=== PATIENT | female | born 1955 | race African-American/Black ===

== ENCOUNTER 2023-10-29 10:52 | Emergency (ER) | payer BC ==
[~2023-10-29] VITALS: Ht 154.9 cm; Wt 77.0 kg
[2023-10-29 11:13] VITALS: O2SAT 100
[2023-10-29 11:36] LABS: HEMATOCRIT. 43.4 % (36.0-48.0); MEAN CORPUSCULAR HEMOGLOBIN 27.2 pg (28.0-32.0); MEAN CORPUSCULAR HGB CONC 32.3 g/dL (31.0-37.0); MEAN CORPUSCULAR VOLUME 84.2 fL (81.0-99.0); MEAN PLATELET VOLUME 6.5 fl (7.4-10.4); PLATELET 393 x1000/uL (130-400); RED BLOOD CELL COUNT 5.15 mill/uL (4.2-5.4)
[2023-10-29 11:39] LABS: DIFFERENTIAL COMMENT 1
[2023-10-29 11:54] LABS: CHLORIDE 110 mEq/L (98-107); POTASSIUM 3.6 mEq/L (3.5-5.1); SODIUM 139 mEq/L (136-145)
[2023-10-29 11:56] LABS: CARBON DIOXIDE 20 mEq/L (21-32)
[2023-10-29 11:57] LABS: CALCIUM 9.3 mg/dL (8.7-10.4)
[2023-10-29 12:01] LABS: CREATININE 0.8 mg/dL (0.6-1.0)
[2023-10-29 12:02] LABS: GLUCOSE 123 mg/dL (70-105); UREA NITROGEN BLOOD 9 mg/dL (9-23)
[2023-10-29 12:03] LABS: ALANINE AMINOTRANSFERASE 17 IU/L (10-49); ALBUMIN 4.2 g/dL (3.2-4.8)
[2023-10-29 12:04] LABS: ASPARTATE AMINOTRANSFERASE 16 IU/L (<34); BILIRUBIN DIRECT 0.2 mg/dL (<=3.0); BILIRUBIN TOTAL 0.5 mg/dL (0.1-1.0); PROTEIN TOTAL 6.5 g/dL (6.0-8.3)
[2023-10-29 12:07] LABS: TROPONIN I HIGH SENSITIVITY < 4 ng/L (3.0-34)
[2023-10-29] MEDS: MORPHINE SULFATE 2 MG/ML CPJ (NOT FOR IM USE) IV ONE (12:14)
[2023-10-29] MEDS: ONDANSETRON HCL 4MG/2ML INJ IV ONE (12:14)
[2023-10-29] MEDS: SODIUM CHLORIDE 0.9% 1,000 ML IV ONE (12:14)
[2023-10-29 12:27] LABS: PLATELET ESTIMATE NORMAL
[2023-10-29 12:44] LABS: ETHANOL BLOOD < 10 mg/dL (<10)
[2023-10-29 12:47] LABS: CLARITY URINE CLEAR (CLEAR); COLOR URINE YELLOW (YELLOW); GLUCOSE URINE NEGATIVE (NEGATIVE); KETONES URINE TRACE (NEGATIVE); LEUKOCYTE ESTERASE URINE NEGATIVE (NEGATIVE); NITRITE URINE NEGATIVE (NEGATIVE); OCCULT BLOOD URINE NEGATIVE (NEGATIVE); PH URINE >=9.0 (4.5-8.0); PROTEIN URINE NEGATIVE (NEGATIVE); SPECIFIC GRAVITY URINE 1.012 (1.005-1.030); UROBILINOGEN URINE 0.2 E.U./dL (0.2-1.0)
[2023-10-29] MEDS ORDERED: IOHEXOL-300 100 ML BOTTLE ONE (14:04)
[2023-10-29 16:00] VITALS: BP 114/67; PULSE 79; RESP 20; TEMP 98
== END 2023-10-29 15:58 | disposition home or self-care (01) ==
LOC: ER 11:05
DX: R10.84 Generalized abdominal pain (principal); I10 Essential (primary) hypertension; E78.00 Pure hypercholesterolemia, unspecified; Z81.1 Family history of alcohol abuse and dependence
CPT/HCPCS: 80076; 80048; 81003; 80320; 83690; 85025; 84484; 36415; 74177; 96361; 96374; 96375; 99285; Q9967; J2405; J2270; G0480